=== PATIENT | male | born 1965 | race Caucasian/White ===

== ENCOUNTER 2017-03-13 23:59 | Inpatient (IN) | payer SELFPAY ==
--- NOTE | ~2017-03-13 | CN ---
Consultation Report [facility] [address] [place]. [address] NAME: MERRILL HENNING JR : 65 STATUS : ADM Brooks PAT#: [id number] AGE: 51 ADM/REG DATE : 03/14/17 MR#: [id number] REPORT SERV DATE: 03/16/17 DICTATED BY: RONAK WILSON DATE: 03/16/17 REPORT STATUS : Draft TRANSCRIBED BY: MODShonda DATE: 03/16/17 PSYCHIATRIC CONSULTATION DATE OF CONSULTATION: 03/16/2017 I reviewed this patient's medical record. I discussed patient's status and patient's history with Dr. Alonzo. I discussed patient's status with his nurse. HISTORY OF PRESENT ILLNESS: He was admitted with a blue toe syndrome, affecting his left little toe. He is now with a newly diagnosed cardiomyopathy, with an ejection fraction of about 40%. I was consulted because of his labile emotions and his behaviors designed to get his ex-girlfriend back in his life. PAST PSYCHIATRIC HISTORY: He reports that he saw a psychiatrist at [facility] in [place] for a number of visits, a year or two ago. He said he was diagnosed with bipolar disorder and he was prescribed medications that according to him "made me a slobbering idiot." He has a long history of anger issues and boundary violations. SOCIAL HISTORY: He has been and one time. 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 He and his ex-girlfriend of 11 years have had a stormy relationship. They had been for a number of months. He said she broke a protective order by making contact with him. He is now angry that she or no other family member have come to visit him since his admission to the hospital. MENTAL STATUS: He was very uncooperative in attitude. His mood was angry. His affect was labile. His thinking showed paranoid traits with a tendency to blame others for all of his problems. In particular, he tended to lay the blame on his ex-girlfriend. These paranoid traits were not quite delusional in degree. He had no hallucinations. He was oriented to time, place, and person. DIAGNOSIS: Mood disorder, not otherwise specified. RECOMMENDATIONS: He refused to consider re-engaging in psychiatric treatment. He also indicated that he did not appreciate my intervention and he did not want me to return for a followup visit. I will sign off. DK/MODL Ronak Wilson M.D. Consultation Report [address] [place]. [address] NAME: JUVENCIO SPARROWJHOANADAVID NIÑO : 65 STATUS : ADM Brooks PAT#: [id number] AGE: 51 ADM/REG DATE : 03/14/17 MR#: [id number] REPORT SERV DATE: 03/16/17 DICTATED BY: RONAK WILSON DATE: 03/16/17 REPORT STATUS : Draft TRANSCRIBED BY: LUIS ALBERTO DATE: 03/16/17 / [id number] CC: Ryan Alonzo M.D.
--- NOTE | ~2017-03-13 | CN ---
Consultation Report [facility] [address] [place]. [address] NAME: MERRILL BRIGGS JR : 65 STATUS : ADM Brooks PAT#: [id number] AGE: 51 ADM/REG DATE : 03/14/17 MR#: [id number] REPORT SERV DATE: 03/15/17 DICTATED BY: BARBARA MEJIA DATE: 03/15/17 REPORT STATUS : Draft TRANSCRIBED BY: MODShonda DATE: 03/15/17 CARDIOLOGY CONSULTATION DATE OF CONSULTATION: 03/15/2017 REASON FOR CONSULTATION: Newly diagnosed cardiomyopathy. HISTORY OF PRESENT ILLNESS: Mr. Briggs is a 51-year-old man with no previous cardiovascular history. The patient does have a history of longstanding poorly controlled hypertension. The patient presented to [facility] Emergency Room with a one- to two-day history of severe left toe pain. This was associated with a blue discoloration of the patient's toes as well as loss of sensation to the patient's distal left foot. The patient has been diagnosed with blue toe syndrome by the Vascular Surgery Service. His JAVAN in the emergency room on the left side was found to be 0.9. A transthoracic echocardiogram is recommended as part of the patient's vascular workup. The patient was found to have decreased left ventricular systolic function with an ejection fraction of approximately 40% associated with inferior wall motion abnormalities of the inferior myocardium. The patient denies any previous cardiovascular history. He denies any exertional chest pain or unusual exertional dyspnea. 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 He smokes very heavily and reports that he has smoked as much as three packs per day, though he is presently down to one pack per day. He also has a history of marijuana use. The patient has no nurse college and denies any previous cardiovascular workup. He reports that his blood pressure has often been found with a systolic blood pressure in excess of 200 mmHg. PAST MEDICAL HISTORY: 1. Hypertension, apparently poorly controlled. 2. Peripheral arterial disease, recently diagnosed with blue toe syndrome. The patient has had previous angioplasty of the superficial femoral artery. FAMILY HISTORY: Noncontributory. SOCIAL HISTORY: The patient is a [id number]-pkhx smoker, perhaps more. He denies heavy alcohol use. He does smoke marijuana. ALLERGIES: THE PATIENT HAS NO KNOWN MEDICATION ALLERGIES. HOME MEDICATIONS: The patient apparently is on no home medications, or at least he cannot remember the names of any medications that he has been on in the past. REVIEW OF SYSTEMS: The patient is presently tearful. He apparently is involved in some kind of dispute with his girlfriend. However, an abbreviated 12-system review is otherwise noncontributory, except as noted in the history of present illness above. The patient specifically denies Consultation Report [address] [place]. [address] NAME: MERRILL BRIGGS JR : 65 STATUS : ADM Brooks PAT#: [id number] AGE: 51 ADM/REG DATE : 03/14/17 MR#: [id number] REPORT SERV DATE: 03/15/17 DICTATED BY: BARBARA MEJIA DATE: 03/15/17 REPORT STATUS : Draft TRANSCRIBED BY: LUIS ALBERTO DATE: 03/15/17 palpitations, dizziness, syncope, orthopnea, or paroxysmal nocturnal dyspnea. He denies unusual dyspnea on exertion. PHYSICAL EXAMINATION: VITAL SIGNS: Temperature is 97.5 degrees Fahrenheit; blood pressure is currently 145/91 mmHg, though the patient has been hypertensive during this admission with a maximum blood pressure of 193/114 mmHg; heart rate is 90 beats per minute and regular; respirations 15; oxygen saturation is 96% on room air. CONSTITUTIONAL: The patient is a well-nourished, well-developed white man, who is currently tearful, but otherwise in no acute distress. EYES: PERRL. EOMI. Clear conjunctiva. HEAD/MNT: NCAT with moist mucous membranes and grossly normal hard and soft palate. NECK: Supple with no obvious thyromegaly or lymphadenopathy. CARDIOVASCULAR: There is a regular rhythm with a normal S1 and a physiologically split second heart sound. No significant murmurs, rubs, or gallops are noted. The jugular venous pressure appears grossly normal. PULMONARY: Slightly decreased air movement globally. The lungs are otherwise clear to auscultation with no wheezing, rales, rhonchi, or dullness to percussion noted. ABDOMINAL: Soft, non-tender, non-distended with no hepatosplenomegaly noted. EXTREMITIES: The fifth digit of the left foot is blue and tender to palpation. There is a reddish/plethoric appearance of the great toe on the left foot. Peripheral pulses are intact bilaterally. There is no clubbing or cyanosis otherwise. MUSCULOSKELETAL: Grossly normal strength and range of motion in all extremities. INTEGUMENTARY: Skin appears intact with no bruises, wounds, or active lesions noted. NEURO/PSYC: Alert and oriented x3 with no dysarthria, facial droop, or lateralizing weakness noted. DATA: 12-lead EKG: The 12-lead EKG shows normal sinus rhythm with an RSR prime pattern. There is symmetrical T-wave inversion noted in II, III, aVF, lead I, and leads V4 through V6. These changes are suggestive of myocardial ischemia. There is left axis deviation. Q- waves are noted in leads V5 and V6, which may suggest a lateral NE. There are Q-waves in leads II, III and aVF, which meet criteria for inferior myocardial infarction of indeterminate age. LABORATORY DATA: The patient's labs are reviewed. The patient has grossly normal cell counts and renal function. He has an elevated CRP. Lab workup is otherwise unremarkable. ASSESSMENT AND PLAN: 1. Newly diagnosed cardiomyopathy: The patient's echocardiogram and EKG are strongly suggestive of underlying coronary artery disease. Coronary angiography is recommended for definition of the patient's anatomy. The patient has no overt symptoms and may have had a previous inferior myocardial infarction. We will discuss percutaneous intervention versus medical therapy versus coronary artery bypass grafting surgery after the patient's anatomy is defined tomorrow. The patient will continue on aspirin and atorvastatin. Consultation Report [address] [place]. [address] NAME: MERRILL BRIGGS JR : 65 STATUS : ADM Brooks PAT#: [id number] AGE: 51 ADM/REG DATE : 03/14/17 MR#: [id number] REPORT SERV DATE: 03/15/17 DICTATED BY: BARBARA MEJIA DATE: 03/15/17 REPORT STATUS : Draft TRANSCRIBED BY: LUIS ALBERTO DATE: 03/15/17 2. Hypertension, uncontrolled: We will start carvedilol 3.125 mg twice daily and increase as necessary to achieve a goal blood pressure of less than 140/90 mmHg. 3. Tobacco abuse: The patient will be strongly encouraged to discontinue cigarette smoking. We will offer the patient a prescription for Chantix. [facility]/LUIS ALBERTO Barbara Mejia MD / [id number] CC: Ryan Alonzo M.D.
--- NOTE | ~2017-03-13 | CN ---
Consultation Report [facility] [id number] [place]. [address] NAME: MERRILL HENNING JR : 65 STATUS : ADM Brooks PAT#: [id number] AGE: 51 ADM/REG DATE : 03/14/17 MR#: [id number] REPORT SERV DATE: 03/14/17 DICTATED BY: ALEJO JENSEN DATE: 03/14/17 REPORT STATUS : Draft TRANSCRIBED BY: LUIS ALBERTO DATE: 03/14/17 CONSULTATION NOTE DATE OF CONSULTATION: 03/14/2017 REASON FOR CONSULTATION: Evaluation for blue toe syndrome. BRIEF HISTORY: The patient is a 51-year-old gentleman with a past medical history significant for tobacco abuse, and atherosclerosis of his lower extremities, who previously had interventions on his right leg for claudication. He comes in today with sudden onset of left first and fifth toe pain and numbness. His left fifth toe started turning blue. He denies any trauma or any other aggravating or alleviating factors. Although, his pain started on , he came in to the hospital Thursday night for evaluation. He denies any worsening of his symptoms. PAST MEDICAL HISTORY: Atherosclerosis of the lower extremities with claudication and hypertension. PAST SURGICAL HISTORY: Percutaneous revascularization with Dr. Sahu. SOCIAL HISTORY: He smokes. He also does use marijuana on a regular basis. He denies any other recreational drug use. 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 FAMILY HISTORY: Noncontributory. MEDICATIONS: Documented on the chart and were reviewed. ALLERGIES: NONE. REVIEW OF SYSTEMS: A complete review of systems was performed and is negative with the exception of the aforementioned findings. PHYSICAL EXAMINATION: VITAL SIGNS: Documented on the chart and were reviewed. GENERAL: The patient is awake, alert, and oriented. In no apparent distress. HEENT: His head and neck examination is benign without any carotid bruits. HEART: Regular rate and rhythm. LUNGS: Clear. ABDOMEN: Soft, nontender, and nondistended with a nonaneurysmal aorta. EXTREMITIES: He has a normal complement of upper extremity pulses without any significant edema or ischemic ulcerations. He has palpable femoral, popliteal, and pedal pulses. In fact, his pedal pulses on the left are stronger than his right. He has no significant edema or ischemic ulcerations. His left fifth toe was cyanotic. It is tender. Consultation Report [facility] [address] [address] NAME: MERRILL HENNING JR : 65 STATUS : ADM Brooks PAT#: [id number] AGE: 51 ADM/REG DATE : 03/14/17 MR#: [id number] REPORT SERV DATE: 03/14/17 DICTATED BY: ALEJO JENSEN DATE: 03/14/17 REPORT STATUS : Draft TRANSCRIBED BY: LUIS ALBERTO DATE: 03/14/17 NEUROLOGIC: Grossly nonfocal. MUSCULOSKELETAL: Examination is otherwise benign. LABORATORY DATA: His laboratory investigations are unremarkable. ASSESSMENT AND PLAN: It looks like this gentleman has had a thromboembolic or atheroembolic event to his left foot. It does not look like he has a flow limiting macrovascular stenosis. He is getting an echocardiogram to rule out a cardiac source of thrombus. He may need a Holter monitor or loop recorder, but I leave this up to Dr. Dewitt to assess. I would like to leave him on anticoagulation. He should be on an aspirin and a statin. He needs to quit smoking. I will also order a CT angiogram of his chest, abdomen, and pelvis to rule out any aneurysmal change or any significant atherosclerotic disease that may be treated with a stent. If all this comes back unremarkable, it would probably be best to treat him with pain control and medical optimization. If his pain persists, we could consider an angiogram with possible intervention, although, his ultrasound suggests that he does not have any significant disease. We would certainly have to look for anything that the ultrasound missed. [facility]/LUIS ALBERTO Alejo Jensen M.D. / [id number] CC: Siva Dewitt M.D.
--- NOTE | ~2017-03-13 | DS ---
Discharge Summary [facility] [address] [place]. [address] NAME: MERRILL HENNING JR : 65 STATUS : ADM Brooks PAT#: [id number] AGE: 51 ADM/REG DATE : 03/14/17 MR#: [id number] REPORT SERV DATE: 03/17/17 DICTATED BY: CARL BOWER DATE: 03/17/17 REPORT STATUS : Draft TRANSCRIBED BY: MODL DATE: 03/17/17 ADMISSION DATE: 03/14/2017 DISCHARGE DATE: 03/17/2017 DISCHARGE DIAGNOSES: 1. Left small toe atheroembolic disease. 2. Ischemic cardiomyopathy. 3. Tobacco abuse. 4. Hypertension that is uncontrolled. CONSULTANTS DURING THIS HOSPITALIZATION: Dr. Alejo Jensen of Vascular Surgery, Dr. El Mejia of Cardiology. INVASIVE PROCEDURES DONE DURING THIS HOSPITALIZATION: Coronary arteriogram showing ischemic disease not amenable to intervention, medical therapy recommended. CT of the abdomen, pelvis, and chest showing normal blood vessels. No significant stenosis or source of atheroembolic disease. Two-dimensional echocardiogram showing inferior wall motion abnormality, decreased EF at about 40%. BRIEF HISTORY OF PRESENT ILLNESS: The patient is a 51-year-old white male who presented to the emergency room with complaints of left toe hurting, was found to have blue toe syndrome, and was admitted to the hospital. For detailed history and physical exam, please see note dictated by Dr. Trey Pretty on 03/14/2017. HOSPITAL COURSE: After being admitted to the hospital, this patient was started on aspirin and statin. Vascular surgery consultation was immediately obtained. Dr. Jensen saw the patient in consultation. He had normal pulses in both lower extremities and a small vessel disease could have been from an embolic disease. An embolic disease workup was done so a two-dimensional echocardiogram was done, including CT of the chest, abdomen, and pelvis. Two-dimensional echocardiogram showed diminished EF, so Cardiology was consulted for cardiomyopathy. Dr. Gallegos saw the patient in consultation, recommended an arteriogram which was performed, and result noted as above. This patient also was seen by Psychiatry with his history of bipolar disorder. He refused to re-engage in psychiatric treatment and was quite tearful during my exam today because he felt that he does not have anybody and was abandoned by all his friends. He remains medically stable and I have asked our licensed social worker and family preservation caseworker to see him about getting him home today. DISCHARGE DISPOSITION: Home. DISCHARGE ACTIVITY: As tolerated. DISCHARGE DIET: Low-sodium diet. DISCHARGE MEDICATIONS: Zestoretic 5/12.5 mg one tablet daily, Lipitor 40 mg one tablet daily, Coreg 3.125 mg once daily, aspirin 81 mg once daily. Discharge Summary [address] [place]. [address] NAME: MERRILL HENNING JR : 65 STATUS : ADM Brooks PAT#: [id number] AGE: 51 ADM/REG DATE : 03/14/17 MR#: [id number] REPORT SERV DATE: 03/17/17 DICTATED BY: CARL BOWER DATE: 03/17/17 REPORT STATUS : Draft TRANSCRIBED BY: LUIS ALBERTO DATE: 03/17/17 DISCHARGE FOLLOWUP: With Podiatry as patient may need an amputation of his toe if he so chooses. Followup with Vascular Surgery as scheduled by Dr. Jensen and followup with Dr. El Mejia in one week. More than 30 minutes spent planning this patient's discharge, reconciling medications, discussing hospital care and followup with the patient, documenting this discharge. DICTATED BY: Matt Heredia/LUIS ALBERTO Carl Bower M.D. / [id number] CC: Matt Heredia MD Sachin V Phade, M.D.
--- NOTE | ~2017-03-13 | HP ---
History And Physical [facility] [address] [place]. [address] NAME: MERRILL BRIGGS JR : 65 STATUS : ADM Brooks PAT#: [id number] AGE: 51 ADM/REG DATE : 03/14/17 MR#: [id number] REPORT SERV DATE: 03/14/17 DICTATED BY: TREY STOCK DATE: 03/14/17 REPORT STATUS : Draft TRANSCRIBED BY: MODShonda DATE: 03/14/17 DATE OF ADMISSION: 03/14/2017 CHIEF COMPLAINT: Pain in his left foot. HISTORY OF PRESENT ILLNESS: This is a 51-year-old male smoker, who has a history of peripheral vascular disease with claudication status post angioplasty of the superficial femoral artery in the past, who presents to the emergency room at [facility], with the above-mentioned complaint. History is obtained from the patient and reviewing data available on the [employer] system. According to Mr. 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 This happened on , which is two days ago. He, somehow, was able to finish his day, go home, and when he removed his shoes, he saw that the little toe of his left foot was blue in color and painful. He says the pain was almost 10/10 in intensity. He tried to get some rest, but his foot was very painful the entire night. The next day, he could not go to work because he could not operate the clutch of his truck in order to chain gears. He stayed at home and during the course of the day, his great toe of the left foot also started getting red, and this actually went numb. The patient decided to come to the emergency room to be evaluated. In the emergency room, arterial and venous Doppler studies of the lower extremity was done and this appeared to be normal. There were no arterial occlusions. JAVAN was 0.9. The ER physician had called Dr. Jensen, the vascular surgeon, who advised admission to Hospitalist Service, and he would consult in the morning. At the time of my evaluation, Mr. Briggs denied any chest pain, palpitations, or orthopnea. He had no cough, hemoptysis, night sweats, or weight loss. He denied any falls or loss of consciousness recently. No history of fevers, chills. He did have nausea and vomiting a couple of times from the pain, but otherwise, without any diarrhea. No history of recent travel or exposures other than those mentioned above. PAST MEDICAL HISTORY: Significant for history of peripheral vascular disease with claudication and angioplasty of the superficial femoral artery done by Dr. Sahu and history of hypertension. SOCIAL HISTORY: He is an avid smoker and has about [id number] history of smoking, continues to do so. He also uses marijuana on a regular basis, last time being this morning due to the pain he says. He denied any other recreational drugs. 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 FAMILY HISTORY: Noncontributory. MEDICATIONS: His medications at home were reviewed by me in the chart today and reordered by me. History And Physical [address] [address] NAME: MERRILL BRIGGS JR : 65 STATUS : ADM Brooks PAT#: [id number] AGE: 51 ADM/REG DATE : 03/14/17 MR#: [id number] REPORT SERV DATE: 03/14/17 DICTATED BY: TREY STOCK DATE: 03/14/17 REPORT STATUS : Draft TRANSCRIBED BY: LUIS ALBERTO DATE: 03/14/17 REVIEW OF SYSTEMS: As in history of present illness. All other systems were reviewed in detail and are quite unremarkable. PHYSICAL EXAMINATION: GENERAL: This is a pleasant 51-year-old in considerable discomfort due to pain in his left foot. He is alert, awake, and oriented to time, place, and person. HEENT: His head is atraumatic, normocephalic. His pupils are equal, reacting to light and accommodating. External ocular muscles are intact. Membranes are moist and pink. Sclerae are nonicteric. NECK: Supple with no jugular venous distention, lymphadenopathy, or thyromegaly. LUNGS: Clear to auscultation with no wheezes, rubs, or crackles. HEART: Heart sounds were regular with no murmurs, rubs, or gallops. ABDOMEN: Soft, nontender. Bowel sounds are present. EXTREMITIES: Showed no cyanosis, clubbing, or edema. The left foot exam reveals blue and very painful little toe and more reddish-appearing great toe of the left foot. Peripheral pulses appear to be equal bilaterally. NEUROLOGIC: Grossly intact. No focal sensory or motor deficits. Higher functions appeared intact. Gait was not examined. VITAL SIGNS: His temperature was 98.4, pulse 105, respirations 16 a minute, blood pressure was 163/90, oxygen saturations were 96%, breathing 2 L of oxygen via nasal cannula. LABORATORY DATA: Reviewed on the [employer] system showed a sodium of 142, potassium 3.3, chloride 104, and CO2 was 33. BUN was 10 with creatinine of 0.88, blood glucose was 76, troponin was 0.02. Lactate was 0.9. CBC showed a white blood cell count of 14,500, otherwise normal hemoglobin, hematocrit, and platelet count. Urinalysis was not performed. Again, lower extremity venous and arterial Dopplers showed no acute disease. JAVAN was 0.9. A 12-lead EKG done in the emergency room was reviewed and interpreted by me. There is normal sinus rhythm at a rate of [address]-T changes. IMPRESSION: 1. Left foot pain. 2. Acute arterial thromboembolism and blue toe syndrome. 3. Hypertension. 4. History of peripheral vascular disease with claudication, status post angioplasty of the superficial femoral artery of the right leg by Dr. Richi Sahu. 5. Tobacco use. PLAN: We will admit Mr. Briggs to the Hospitalist Service with Med/Surg telemetry for a 24- hour observation period. We will keep him n.p.o. at this time. Provide pain control with intravenous morphine on an as needed basis in small doses. We will start him on IV heparin infusion per protocol as well. We will follow this with an echocardiogram in the morning. We will also consult Dr. Jensen, vascular surgeon, to evaluate him in the morning. The patient appears to have what is called blue toe syndrome, which primarily involves distal thromboembolic disease from arterial plaque disease. This would explain why his History And Physical [address] [place] [address] NAME: MERRILL BRIGGS JR : 65 STATUS : ADM Brooks PAT#: [id number] AGE: 51 ADM/REG DATE : 03/14/17 MR#: [id number] REPORT SERV DATE: 06/17/17 DICTATED BY: TREY STOCK DATE: 03/14/17 REPORT STATUS : Draft TRANSCRIBED BY: LUIS ALBERTO DATE: 03/14/17 arterial Dopplers were acceptable at this time and he has a nice warm foot. He really needs to quit smoking as well, and we have discussed this also. Further recommendations will follow after Dr. Jensen has seen in the morning. I have discussed the above plans with the patient. His questions were answered and he is agreeable to the above recommendations. Hospitalist Service will be following him during his stay here. /LUIS ALBERTO Trey Stock M.D. / [id number] CC: Siva Dewitt M.D.
[~2017-03-13 23:59] MED LIST: ASAB PO; HYZAAR 100/25 T1 TAB PO; NORCO1 TAB PO; PLAVIX PO; VALIUM10 MG PO; VALSARTAN
[2017-03-14 00:10] LABS: BASOPHILS 0.2 %; BASOPHILS ABSOLUTE 0.03 10/3/uL (0.0-0.16); EOSINOPHILS ABSOLUTE 0.29 10/3/uL (0.0-0.53); ER CBC TAT 0 Hrs 00 Mins; HEMATOCRIT 47.9 % (40.0-51.0); HEMOGLOBIN 16.5 g/dL (13.6-17.8); IMMATURE GRANULOCYTES 0.5 %; IMMATURE GRANULOCYTES ABSOLUTE 0.07 10/3/uL (0.0-0.11); LYMPHOCYTES 24.8 %; LYMPHOCYTES ABSOLUTE 3.58 10/3/uL (0.67-4.30); MEAN CORPUS HGB CONC 34.4 g/dL (32.0-36.0); MEAN CORPUSCULAR HEMOGLOB 31.4 pg (26.0-34.0); MEAN CORPUSCULAR VOLUME 91.2 fL (80-100); MEAN PLATELET VOLUME 10.8 fL (9.2-13.0); MONOCYTES 11.1 %; NEUTROPHILS 61.4 %; NEUTROPHILS ABSOLUTE 8.89 10/3/uL (2.02-8.40); PLATELET COUNT 197 10/3/uL (150-400); RBC DISTRIBUTION WIDTH 13.8 % (12.0-16.0); RED CELL COUNT 5.25 10/6/uL (4.7-6.1); WHITE BLOOD CELLS 14.5 10/3/uL (4.5-10.5)
[2017-03-14 00:13] LABS: MANUAL DIFF NO %
[2017-03-14 00:17] LABS: INTERNATIONAL NORMAL RATI 0.9 UNITS (-); PARTIAL THROMBO TIME 27.7 SEC (22.5-37.2); PROTIME (NOT ORD) 12.1 SEC (12.0-14.5)
[2017-03-14 00:26] LABS: ALBUMIN 3.6 G/DL (3.5-5.0); CALCIUM, SERUM 8.9 MG/DL (8.5-10.4); CHLORIDE, SERUM 104 MMOL/L (96-112); CREATININE 0.88 MG/DL (0.70-1.30); GFR AFRICAN AMERICAN 115 ML/MIN (>=60); GFR NON AFRICAN AMERICAN 99 ML/MIN (>=60); GLOBULIN 3.6 G/DL (2.5-4.1); POTASSIUM, SERUM 3.3 MMOL/L (3.5-5.3); SGOT(AST) 23 U/L (5-40); SGPT(ALT) 20 U/L (5-65); SODIUM, SERUM 142 MMOL/L (135-148); TOTAL BILIRUBIN 0.3 MG/DL (0-1.2); TOTAL PROTEIN 7.2 G/DL (6.0-8.5)
[2017-03-14 00:27] LABS: ALKALINE PHOSPHATASE 82 U/L (45-117); BUN (BLOOD UREA NITROGEN) 10 MG/DL (6-23); CO2 (CARBON DIOXIDE) 33 MMOL/L (24-34); GLUCOSE, SERUM 76 MG/DL (60-99)
[2017-03-14] MEDS ORDERED: UNABLE TO RECALL (02:51)
[2017-03-14 06:00] LABS: BASOPHILS 0.2 %; BASOPHILS ABSOLUTE 0.03 10/3/uL (0.0-0.16); EOSINOPHILS ABSOLUTE 0.28 10/3/uL (0.0-0.53); HEMATOCRIT 47.4 % (40.0-51.0); HEMOGLOBIN 16.2 g/dL (13.6-17.8); IMMATURE GRANULOCYTES 0.4 %; IMMATURE GRANULOCYTES ABSOLUTE 0.06 10/3/uL (0.0-0.11); LYMPHOCYTES 26.9 %; LYMPHOCYTES ABSOLUTE 3.69 10/3/uL (0.67-4.30); MEAN CORPUS HGB CONC 34.2 g/dL (32.0-36.0); MEAN CORPUSCULAR HEMOGLOB 31.1 pg (26.0-34.0); MEAN PLATELET VOLUME 10.4 fL (9.2-13.0); MONOCYTES 9.5 %; MONOCYTES ABSOLUTE 1.31 10/3/uL (0.21-1.20); NEUTROPHILS ABSOLUTE 8.35 10/3/uL (2.02-8.40); PLATELET COUNT 185 10/3/uL (150-400); RBC DISTRIBUTION WIDTH 13.9 % (12.0-16.0); RED CELL COUNT 5.21 10/6/uL (4.7-6.1); WHITE BLOOD CELLS 13.7 10/3/uL (4.5-10.5)
[2017-03-14 06:02] LABS: MANUAL DIFF NO %
[2017-03-14 06:15] LABS: BUN (BLOOD UREA NITROGEN) 9 MG/DL (6-23); CALCIUM, SERUM 8.5 MG/DL (8.5-10.4); CHLORIDE, SERUM 104 MMOL/L (96-112); CO2 (CARBON DIOXIDE) 29 MMOL/L (24-34); CREATININE 0.79 MG/DL (0.70-1.30); GFR AFRICAN AMERICAN 121 ML/MIN (>=60); GFR NON AFRICAN AMERICAN 104 ML/MIN (>=60); PHOSPHORUS, SERUM 3.2 MG/DL (2.5-4.5); POTASSIUM, SERUM 3.7 MMOL/L (3.5-5.3); SODIUM, SERUM 140 MMOL/L (135-148)
[2017-03-14 06:16] LABS: GLUCOSE, SERUM 97 MG/DL (60-99)
[2017-03-15 03:18] LABS: BASOPHILS 0.2 %; BASOPHILS ABSOLUTE 0.03 10/3/uL (0.0-0.16); EOSINOPHILS 1.7 %; HEMATOCRIT 46.3 % (40.0-51.0); HEMOGLOBIN 16.2 g/dL (13.6-17.8); IMMATURE GRANULOCYTES 0.3 %; IMMATURE GRANULOCYTES ABSOLUTE 0.04 10/3/uL (0.0-0.11); LYMPHOCYTES 21.8 %; LYMPHOCYTES ABSOLUTE 2.62 10/3/uL (0.67-4.30); MEAN CORPUSCULAR HEMOGLOB 31.7 pg (26.0-34.0); MEAN CORPUSCULAR VOLUME 90.6 fL (80-100); MEAN PLATELET VOLUME 10.7 fL (9.2-13.0); MONOCYTES 7.4 %; MONOCYTES ABSOLUTE 0.89 10/3/uL (0.21-1.20); NEUTROPHILS 68.6 %; NEUTROPHILS ABSOLUTE 8.23 10/3/uL (2.02-8.40); PLATELET COUNT 179 10/3/uL (150-400); RBC DISTRIBUTION WIDTH 13.6 % (12.0-16.0); RED CELL COUNT 5.11 10/6/uL (4.7-6.1)
[2017-03-15 03:25] LABS: MANUAL DIFF NO %
[2017-03-15 03:33] LABS: BUN (BLOOD UREA NITROGEN) 10 MG/DL (6-23); C-REACTIVE PROTEIN 14.4 MG/L (<8.0); CALCIUM, SERUM 8.3 MG/DL (8.5-10.4); CHLORIDE, SERUM 105 MMOL/L (96-112); CHOL/HDL RATIO(NOT ORDER) 5.6 (0-5); CHOLESTEROL 173 MG/DL (< 200); CO2 (CARBON DIOXIDE) 28 MMOL/L (24-34); CREATININE 0.85 MG/DL (0.70-1.30); GFR AFRICAN AMERICAN 117 ML/MIN (>=60); GFR NON AFRICAN AMERICAN 101 ML/MIN (>=60); HDL CHOLESTEROL 31 MG/DL (> 39); LDL CHOLESTEROL 104 MG/DL (< 130); NON-HDL CHOLESTEROL 142 MG/DL (< 160); POTASSIUM, SERUM 3.4 MMOL/L (3.5-5.3); SODIUM, SERUM 138 MMOL/L (135-148); TRIGLYCERIDE 191 MG/DL (< 150)
[2017-03-15 03:34] LABS: GLUCOSE, SERUM 130 MG/DL (60-99)
[2017-03-16 04:44] LABS: BASOPHILS 0.3 %; BASOPHILS ABSOLUTE 0.03 10/3/uL (0.0-0.16); EOSINOPHILS 2.4 %; EOSINOPHILS ABSOLUTE 0.27 10/3/uL (0.0-0.53); HEMATOCRIT 47.6 % (40.0-51.0); HEMOGLOBIN 16.3 g/dL (13.6-17.8); IMMATURE GRANULOCYTES 0.5 %; IMMATURE GRANULOCYTES ABSOLUTE 0.06 10/3/uL (0.0-0.11); LYMPHOCYTES 26.2 %; LYMPHOCYTES ABSOLUTE 2.97 10/3/uL (0.67-4.30); MANUAL DIFF NO %; MEAN CORPUS HGB CONC 34.2 g/dL (32.0-36.0); MEAN CORPUSCULAR HEMOGLOB 31.2 pg (26.0-34.0); MEAN CORPUSCULAR VOLUME 91.2 fL (80-100); MEAN PLATELET VOLUME 10.3 fL (9.2-13.0); MONOCYTES 8.4 %; MONOCYTES ABSOLUTE 0.95 10/3/uL (0.21-1.20); NEUTROPHILS 62.2 %; NEUTROPHILS ABSOLUTE 7.05 10/3/uL (2.02-8.40); PLATELET COUNT 191 10/3/uL (150-400); RBC DISTRIBUTION WIDTH 13.5 % (12.0-16.0); RED CELL COUNT 5.22 10/6/uL (4.7-6.1); WHITE BLOOD CELLS 11.3 10/3/uL (4.5-10.5)
[2017-03-16 05:01] LABS: BUN (BLOOD UREA NITROGEN) 8 MG/DL (6-23); CALCIUM, SERUM 8.5 MG/DL (8.5-10.4); CHLORIDE, SERUM 105 MMOL/L (96-112); CHOL/HDL RATIO(NOT ORDER) 4.7 (0-5); CHOLESTEROL 177 MG/DL (< 200); CO2 (CARBON DIOXIDE) 28 MMOL/L (24-34); CREATININE 0.74 MG/DL (0.70-1.30); GFR AFRICAN AMERICAN 124 ML/MIN (>=60); GFR NON AFRICAN AMERICAN 107 ML/MIN (>=60); LDL CHOLESTEROL 100 MG/DL (< 130); NON-HDL CHOLESTEROL 139 MG/DL (< 160); POTASSIUM, SERUM 3.6 MMOL/L (3.5-5.3); SODIUM, SERUM 140 MMOL/L (135-148); TRIGLYCERIDE 197 MG/DL (< 150)
[2017-03-16 05:03] LABS: GLUCOSE, SERUM 94 MG/DL (60-99); HDL CHOLESTEROL 38 MG/DL (> 39)
[2017-03-17 04:39] LABS: BASOPHILS 0.2 %; BASOPHILS ABSOLUTE 0.03 10/3/uL (0.0-0.16); EOSINOPHILS 2.4 %; HEMATOCRIT 47.8 % (40.0-51.0); HEMOGLOBIN 16.1 g/dL (13.6-17.8); IMMATURE GRANULOCYTES 0.6 %; IMMATURE GRANULOCYTES ABSOLUTE 0.08 10/3/uL (0.0-0.11); LYMPHOCYTES 19.8 %; LYMPHOCYTES ABSOLUTE 2.47 10/3/uL (0.67-4.30); MEAN CORPUS HGB CONC 33.7 g/dL (32.0-36.0); MEAN CORPUSCULAR VOLUME 92.1 fL (80-100); MEAN PLATELET VOLUME 11.4 fL (9.2-13.0); MONOCYTES 8.7 %; MONOCYTES ABSOLUTE 1.09 10/3/uL (0.21-1.20); NEUTROPHILS 68.3 %; NEUTROPHILS ABSOLUTE 8.53 10/3/uL (2.02-8.40); PLATELET COUNT 216 10/3/uL (150-400); RBC DISTRIBUTION WIDTH 13.6 % (12.0-16.0); RED CELL COUNT 5.19 10/6/uL (4.7-6.1); WHITE BLOOD CELLS 12.5 10/3/uL (4.5-10.5)
[2017-03-17 04:40] LABS: MANUAL DIFF NO %
[2017-03-17 04:53] LABS: BUN (BLOOD UREA NITROGEN) 11 MG/DL (6-23); CALCIUM, SERUM 8.4 MG/DL (8.5-10.4); CHLORIDE, SERUM 106 MMOL/L (96-112); CO2 (CARBON DIOXIDE) 25 MMOL/L (24-34); CREATININE 0.84 MG/DL (0.70-1.30); GFR AFRICAN AMERICAN 117 ML/MIN (>=60); GFR NON AFRICAN AMERICAN 101 ML/MIN (>=60); POTASSIUM, SERUM 3.8 MMOL/L (3.5-5.3); SODIUM, SERUM 139 MMOL/L (135-148)
[2017-03-17 04:55] LABS: GLUCOSE, SERUM 114 MG/DL (60-99)
[2017-03-17] MEDS ORDERED: ASAB PO (14:23)
[2017-03-17] MEDS ORDERED: LIPITOR40 PO (14:24)
[2017-03-17] MEDS ORDERED: ZESTORETIC1 TAB PO (14:25)
[2017-03-17] MEDS ORDERED: COREG3 PO (14:25)
== END 2017-03-17 19:02 | disposition home or self-care (01) | DRG 287 ==
LOC: ER 23:59 → CDU1 03-14 03:17
PROVIDERS: Internal Medicine; Internal Medicine Cardiovascular Disease; Nurse Practitioner Family; Specialist
PROC: 4A023N7 Measurement of Cardiac Sampling and Pressure, Left Heart, Percutaneous Approach (ICD-10-PCS; principal; 2017-03-16)
PROC: B2111ZZ Fluoroscopy of Multiple Coronary Arteries using Low Osmolar Contrast (ICD-10-PCS; 2017-03-16)
PROC: B2151ZZ Fluoroscopy of Left Heart using Low Osmolar Contrast (ICD-10-PCS; 2017-03-16)
DX: I75.022 Atheroembolism of left lower extremity (principal); I10 Essential (primary) hypertension; I25.10 Atherosclerotic heart disease of native coronary artery without angina pectoris; I25.2 Old myocardial infarction; I25.5 Ischemic cardiomyopathy; F31.9 Bipolar disorder, unspecified; F39 Unspecified mood [affective] disorder; I70.213 Atherosclerosis of native arteries of extremities with intermittent claudication, bilateral legs; Z72.0 Tobacco use
CPT/HCPCS: 71260; 73630-LT; 74178; 80048; 80053; 80061; 83735; 84100; 85025; 85610; 85730; 86140; 93005; 93458; 93926; 93971; 96374; 96375; 99152; 99153; 99285; A9270-GY; C1769; C1887; C1894; C8929; J0360; J1200; J2250; J2405; J3010; Q9957; Q9967